=== PATIENT | female | born 1945 | race Caucasian/White ===

== ENCOUNTER 2022-09-19 17:41 | Emergency (ER) | payer MEDICARE ==
[~2022-09-19] VITALS: Ht 154.9 cm; Wt 54.4 kg
[2022-09-19] MEDS ORDERED: IV NORMAL SALINE 1000 ML BAG IV ONE (17:45)
[2022-09-19] MEDS ORDERED: GABAPENTIN (18:12)
[2022-09-19] MEDS ORDERED: HYDRALAZINE (18:12)
[2022-09-19] MEDS ORDERED: CRESTOR (18:12)
--- NOTE | 2022-09-19 19:15 | NUR ---
MD at bedside speaking to patient's daughter about the risk of signing her mother out AMA.
--- NOTE | 2022-09-19 19:30 | NUR ---
Called [facility] and spoke to Senia who states they are unable to accept transfer at this time due to being at capacity and can check tomorrow morning for bed availability
--- NOTE | 2022-09-19 19:59 | NUR ---
Patient's daughter has signed AMA form and patient daughter and caregiver transferred patient to wheelchair and into their own private vehichle.
== END 2022-09-19 20:05 | disposition left against medical advice (07) ==
LOC: ER 17:41
DX: S72.141A Displaced intertrochanteric fracture of right femur, initial encounter for closed fracture (principal); R51.9 Headache, unspecified; R07.89 Other chest pain; I10 Essential (primary) hypertension; E78.5 Hyperlipidemia, unspecified; Z79.899 Other long term (current) drug therapy; W18.39XA Other fall on same level, initial encounter; Y93.89 Activity, other specified; Y92.89 Other specified places as the place of occurrence of the external cause; Y99.8 Other external cause status
CPT/HCPCS: 70450; 71045; 73502; 93005; A4663; J7040